=== PATIENT | female | born 1990 | race Caucasian/White ===

== ENCOUNTER 2021-11-30 21:25 | Emergency (ER) | payer OTHER, SELFPAY ==
--- NOTE | 2021-11-30 21:44 | ECG_ITS ---
Test Reason : palpitations Blood Pressure : / mmHG Vent. Rate : 090 BPM Atrial Rate : 090 BPM P-R Int : 126 ms QRS Dur : 092 ms QT Int : 378 ms P-R-T Axes : 023 067 038 degrees QTc Int : 462 ms Normal sinus rhythm Incomplete right bundle branch block Borderline ECG When compared with ECG of 16-APR-2017 22:33, Non-specific change in ST segment in Anterior leads Nonspecific T wave abnormality now evident in Anterior leads Referred By: Generic ED Physician Electronically Signed By:RAHUL BOYER MD
[2021-11-30 21:59] VITALS: BP 100/70; PULSE 83; RESP 18; TEMP 36.4; O2SAT 97; BMI 26.2
[2021-11-30 22:01] LABS: MANUAL DIFF FLAG NO
[2021-11-30 22:04] LABS: Basophils Absolute Auto 0.1 X10*3/uL (0.0-0.2); Basophils Percent Auto 0.6 % (0-2); Eosinophils Absolute Auto 0.1 X10*3/uL (0.0-0.4); Eosinophils Percent Auto 1.6 % (0-4); Hematocrit 41.5 % (37.0-47.0); Hemoglobin 13.5 g/dl (12.0-16.0); Imm Gran Abs Auto 0.02 X10*3/uL (0.00-0.03); Imm Gran Pct Auto 0.2 % (0.0-0.4); Lymphocytes Absolute Auto 2.8 X10*3/uL (1.2-4.9); Mean Corpuscular HGB Conc 32.5 g/dl (31.0-35.0); Mean Corpuscular Hemoglobin 28.2 pg (27.0-33.0); Mean Corpuscular Volume 86.6 fL (80.0-98.0); Mean Platelet Volume 11.5 fL (9.4-12.3); Monocytes Absolute Auto 0.5 X10*3/uL (0.1-1.2); Monocytes Percent Auto 6.3 % (2-11); Neutrophils Absolute Auto 4.8 x10*3/uL (2.0-8.3); Neutrophils Percent Auto 57.3 % (45-73); Platelet Count 244 X10*3/uL (160-400); Red Blood Count 4.79 X10*6/uL (4.20-5.50); Red Cell Distribution Width 12.8 % (11.0-16.0); White Blood Count 8.4 X10*3/uL (4.8-10.8)
[2021-11-30 22:14] LABS: Anion Gap 11 (12-20); Blood Urea Nitrogen 12 mg/dL (9-16); Calcium 9.4 mg/dL (8.4-10.2); Carbon Dioxide 24 mmol/L (22-29); Chloride 108 mmol/L (96-108); Estimated Glomerular Filt Rate > 60; Glucose Random 120 mg/dL (60-115); Potassium 3.7 mmol/L (3.3-5.1); Sodium 139 mmol/L (135-145)
[2021-11-30 22:22] LABS: Troponin-I High Sensitivity < 3.5 ng/L (<3.5-17.0)
--- NOTE | 2021-11-30 22:52 | ED_ITS ---
HPI - Chest Pain General Chief Complaint: Chest Pain Stated Complaint: sob,palpations,fingers pati Time Seen by Provider: 11/30/21 22:17 Source: patient Mode of arrival: ambulatory Limitations: no limitations History of Present Illness HPI narrative: 31-year-old female history of anxiety and depression presents to the ED for chest pain and tingling in hands and feet for the past four months. Patient states having the symptoms for the past 4 months. Patient states she has been seen by primary care and balance wheel arm burnisher and was informed that she has no heart issues nd her symptoms due to panic attacks. Patient states she was seen last night at [facility] and they discharged her. Patient denies any leg swelling, calf pain, coughing up blood, fever, chills, pleuritic chest pain, shortness of breath on exertion, headache, or dizziness. Related Data Allergies Allergy/AdvReac Type Severity Reaction Status Date / Time No Known Allergies Allergy Unverified 04/29/20 19:20 [No Known Allergies*] Review of Systems Review of Systems: Chest pain. Tingling extremities. Anxiety Yes all other systems are reviewed and are negative [facility] Social History Social History Advance Directives: No Advance Directives Information Provided: No Physical Exam Vital Signs: Vital Signs: Last Vital Signs Temp 98.4 F 11/30/21 23:50 Pulse 84 11/30/21 23:50 Resp 18 11/30/21 21:59 BP 104/72 11/30/21 23:50 Pulse Ox 98 11/30/21 23:50 BMI result Body Mass Index 26.2 Const: General: cooperative, healthy appearing, comfortable, no acute distress, well developed, alert, awake and Physically active Orientat ion/consciousness: patient oriented x3 HEENT: Head: Yes normal to inspection, Yes No palpable skull fracture present, Yes normocephalic, Yes atraumatic and No abrasion Eyes: General: appearance normal, both eyes and all related structures Neck: Neck: Yes normal visual inspection, Yes full ROM, Yes no lymphadenopathy, Yes no meningeal signs, Yes trachea midline, Yes supple, No anterior neck swelling and No tender Chest: Chest palpation & inspection: normal inspection of the chest and normal palpation of entire chest wall Resp: Effort & Inspection: normal respiratory effort and able to speak in complete sentences Auscultation: clear to auscultation bilaterally Cardio: Jugular venous distension: no JVD Heart sounds: S1 normal heart sound present and S2 normal heart sound present GI: Inspection: Yes normal to inspection and No abdominal wall ecchymosis Palpation (GI): Soft to palpation, not firm, nontender, no guarding and not rigid : General: No CVA tenderness and Yes no CVA tenderness Back/Spine/Pelvis: Back: no CVA tenderness, No CVA tenderness and No back tenderness Skin: General skin exam: no rashes or lesions noted and elasticity normal Neuro: Other: Negative slurred speech. Negative facial droop. All extremities equal strength 5+. [id number] rapid hand movement intact. Negative Romberg. Negative pronator drift. NIH score 0. General: patient oriented x3, gait normal, no meningeal signs and CN's II-XI intact bilaterally Cranial nerves: Yes CN's II-XII intact bilaterally Extrem: General: Yes normal to inspection and Yes full ROM Psych: Appearance: grossly normal, well kempt and not disheveled Course Course Course Narrative: EKG and labs were ordered. Vital signs are stable. Patient is not in any distress. Negative for any neuro deficits. Reevaluation(s) Reevaluation #1: EKG negative STEMI. Patient's troponin negative after having symptoms for four- month. No indication for head CT scan. Neuro exam is intact. I reviewed notes from [facility]. Patient was seen yesterday at [facility] and had a negative workup. Negative for any new EKG changes. Patient's troponins were negative. Patient's electrolytes were normal. Patient's chest CT was negative for PE and negative for pneumonia. While reviewing [facility] notes patient was seen at [facility] multiple times for the same symptoms during the month of November. Upon re-evaluation patient informed me that she was seen by balance wheel arm burnisher and they told her she had no heart issue and was just anxiety. Patient states balance wheel arm burnisher informed her she had normal Holter monitor, normal echocardiogram, and normal stress test. . She has stress and echo which were all normal. Patient is taking citalopram for anxiety.Patient states also normal pulmonalogy work up. Currently no further workup indication indicated. Patient be discharged. No indication for chest x-ray. Lungs are clear. Patient has normal chest CTA yesterday at [facility] and was negative for PE, pleural effusion, pneumo/hemothorax or pneumonia. Patient states having these symptoms for the past 4 months. Case and plan discussed with attending Dr. Roldan who agrees with plan. Time: 23:20 MDM - Chest Pain MDM Narrative Medical decision making narrative: Atypical chest pain. Anxiety Lab Data Result diagrams: 11/30/21 21:56 11/30/21 21:56 Labs: Lab Results 11/30/21 11/30/21 11/30/21 Range/Units 21:56 21:56 21:56 WBC 8.4 (4.8-10.8) X10*3/uL RBC 4.79 (4.20-5.50) X10*6/uL Hgb 13.5 (12.0-16.0) g/dl Hct 41.5 (37.0-47.0) % MCV 86.6 (80.0-98.0) fL MCH 28.2 (27.0-33.0) pg MCHC 32.5 (31.0-35.0) g/dl RDW 12.8 (11.0-16.0) % Plt Count 244 (160-400) X10*3/uL MPV 11.5 (9.4-12.3) fL Immature Gran % (Auto) 0.2 (0.0-0.4) % Neut % (Auto) 57.3 (45-73) % Lymph % (Auto) 34.0 (20-40) % [place] % (Auto) 6.3 (2-11) % Eos % (Auto) 1.6 (0-4) % Baso % (Auto) 0.6 (0-2) % Lymph # (Auto) 2.8 (1.2-4.9) X10*3/uL [place] # (Auto) 0.5 (0.1-1.2) X10*3/uL Eos # (Auto) 0.1 (0.0-0.4) X10*3/uL Baso # (Auto) 0.1 (0.0-0.2) X10*3/uL Abs Immat Gran (auto) 0.02 (0.00-0.03) X10*3/uL Absolute Neuts (auto) 4.8 (2.0-8.3) x10*3/uL Absolute Nucleated RBC 0.000 (0.0-0.012) X10*3/uL Nucleated RBC % (auto) 0.0 (0.0-0.2) /100WBC Sodium 139 (135-145) mmol/L Potassium 3.7 (3.3-5.1) mmol/L Chloride 108 (96-108) mmol/L Carbon Dioxide 24 (22-29) mmol/L Anion Gap 11 L (12-20) BUN 12 (9-16) mg/dL Creatinine 0.93 (0.5-1.4) mg/dL Estim Creat Clear Calc 87.0 Estimated GFR > 60 Random Glucose 120 H (60-115) mg/dL Calcium 9.4 (8.4-10.2) mg/dL Troponin I High Sens < 3.5 (<3.5-17.0) ng/L ECG Data ECG #1: Interpretation: Normal sinus rhythm. Incomplete right bundle branch block. Ventricular rate 90. Pr interval 126. QRS 92. QTC 462. Negative STEMI Discharge Plan Discharge Clinical Impression: Atypical chest pain Patient Disposition: Home, Self-Care Instructions: Chest Pain (ED) Additional Instructions: In the EKG blood work, came back normal and negative for signs for heart attack. Please follow-up with the primary care provider. Return to ED for any slurred speech, facial droop, paralysis of extremities, leg swelling, calf pain, coughing up blood, shortness of breath, fever, chills, or any other concerning symptoms. Interventions: ED Discharge Assessment Last Done: 11/30/21 23:51 Discharge Date/Time: 11/30/21 23:51 Print Language: Scottish
[2021-11-30 23:50] VITALS: BP 104/72; PULSE 84; TEMP 36.9; O2SAT 98
== END 2021-11-30 23:51 | disposition home or self-care (01) ==
PROVIDERS: Emergency Medicine Emergency Medical Services; Emergency Provider Internal Medicine; PCP Internal Medicine
DX: R07.89 Other chest pain (principal); F41.9 Anxiety disorder, unspecified; Z79.899 Other long term (current) drug therapy
CPT/HCPCS: 36415; 80048; 84484; 85025; 93005; 99283; 99285